=== PATIENT | male | born 1965 | race Caucasian/White ===

== ENCOUNTER 2016-09-16 11:43 | Emergency (ER) | payer BC ==
[~2016-09-16] VITALS: Ht 182.9 cm; Wt 91.0 kg
[~2016-09-16 11:43] MED LIST: ADVI200C9 PO; ASPI325T PO; ATEN-100 PO; ATOR20TA42 PO; FERR50TA OR; HYDR-2951 PO; TAB-TAB PO; ULTR50TA PO
[2016-09-16 11:53] VITALS: BP 138/88; PULSE 56; RESP 16; TEMP 98.2; O2SAT 98
[2016-09-16] MEDS ORDERED: ATEN25TA PO (12:05)
[2016-09-16] MEDS ORDERED: ROSU40 PO (12:05)
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
[2016-09-16] MEDS ORDERED: MUPI2%T TOPICAL (13:02)
[2016-09-16] MEDS ORDERED: CEPH-460 PO (13:02)
== END 2016-09-16 13:20 | disposition home or self-care (01) ==
LOC: PHEFT 11:43
DX: S20.419A Abrasion of unspecified back wall of thorax, initial encounter (principal); S50.811A Abrasion of right forearm, initial encounter; S30.810A Abrasion of lower back and pelvis, initial encounter; V19.9XXA Pedal cyclist (driver) (passenger) injured in unspecified traffic accident, initial encounter; Y93.55 Activity, bike riding
CPT/HCPCS: 99284